=== PATIENT | female | born 1995 | race Caucasian/White ===

== ENCOUNTER 2023-02-22 23:12 | Emergency (ER) | payer OTHER, SELFPAY ==
[2023-02-23 00:41] LABS: SARS-CoV-2 NAA Rapid Test Not Detected (NotDetected)
[2023-02-23] MEDS ORDERED: Ketorolac Tromethamine 30 MG/ML VIAL ONE (01:04)
[2023-02-23] MEDS ORDERED: Dexameth. Sod Phosp. 10 MG/ML (CHEMO USE ONLY) ONE (01:04)
[2023-02-23] MEDS ORDERED: Acetaminophen 500 MG TAB ONE (01:04)
== END 2023-02-23 01:32 | disposition home or self-care (01) ==
LOC: ERS 23:12
DX: B34.9 Viral infection, unspecified (principal); K08.89 Other specified disorders of teeth and supporting structures; I10 Essential (primary) hypertension; F17.210 Nicotine dependence, cigarettes, uncomplicated; Z20.822 Contact with and (suspected) exposure to COVID-19
CPT/HCPCS: 96372; 99283; J1100; J1885